=== PATIENT | female | born 1950 | race Caucasian/White ===

== ENCOUNTER 2018-06-19 21:52 | Emergency (ER) | payer BC ==
[~2018-06-19] VITALS: Ht 167.6 cm; Wt 65.9 kg
[2018-06-19 21:52] VITALS: BP 136/69
[2018-06-19] MEDS ORDERED: LEVO125T4 PO (22:46)
[2018-06-19] MEDS ORDERED: PHENAZOPYRIDINE 100 MG TAB PO ONE (23:00)
[2018-06-19] MEDS ORDERED: CIPROFLOXACIN 500 MG TAB PO ONE (23:00)
[2018-06-19] MEDS ORDERED: CIPR-249 PO (23:11)
== END 2018-06-19 23:16 | disposition home or self-care (01) ==
LOC: M ED 21:52
DX: N30.90 Cystitis, unspecified without hematuria (principal); E03.9 Hypothyroidism, unspecified; Z79.890 Hormone replacement therapy; Z88.2 Allergy status to sulfonamides